=== PATIENT | female | born 1990 | race Caucasian/White ===

== ENCOUNTER 2023-11-04 10:10 | Outpatient (CLI) | payer OTHER, MEDICAID, SELFPAY | END 2023-11-04 10:11 | disposition home or self-care (01) | LOC: NFLDREF 10:11 | PROVIDERS: Visit Provider Physician Assistant | DX: Z34.82 Encounter for supervision of other normal pregnancy, second trimester (principal) | CPT/HCPCS: 86762 ==

== ENCOUNTER 2023-11-20 15:10 | Outpatient (CLI) | payer OTHER, MEDICAID, SELFPAY | END 2023-11-20 15:11 | disposition home or self-care (01) | LOC: NFLDREF 11-21 07:00 | PROVIDERS: Visit Provider Obstetrics & Gynecology | DX: Z34.92 Encounter for supervision of normal pregnancy, unspecified, second trimester (principal) | CPT/HCPCS: 82728 ==

== ENCOUNTER 2023-12-08 15:40 | Outpatient (CLI) | payer OTHER, MEDICAID, SELFPAY ==
[2023-12-09 15:11] LABS: Strep B DNA Probe Negative (Negative)
[2023-12-10 03:40] LABS: Strep B Susceptibility Needed? No
== END 2023-12-08 15:41 | disposition home or self-care (01) ==
LOC: NFLDREF 15:41
PROVIDERS: PCP Obstetrics & Gynecology; Visit Provider Obstetrics & Gynecology
DX: Z34.83 Encounter for supervision of other normal pregnancy, third trimester (principal)
CPT/HCPCS: 87081; 87653

== ENCOUNTER 2023-12-24 14:55 | Outpatient (CLI) | payer OTHER, MEDICAID, SELFPAY ==
--- NOTE | 2023-12-24 15:00 | CRLHL7_ITS ---
For Patients: As a result of the Century Cures Act, medical imaging exams and procedure reports are released immediately into your electronic medical record. You may view this report before your referring provider. If you have questions, please contact your health care provider. INDICATION: History of macrosomia TECHNIQUE: Real time ornelas scale imaging of the fetus was performed. COMPARISON: None FINDINGS: Sonographic imaging demonstrates a single living intrauterine gestation. Fetus demonstrates a regular cardiac rate of 139 beats per minute. Fetus has a vertex position. The placenta lies right anterior. Amniotic fluid volume single deepest pocket of 8.3 cm. RITO 25.0 cm. The estimated weight is 4428gm which lies at the greater than 97th %. BPD, HC, AC greater than 97th percentile. FL 45th percentile. The fetus was active. Absent breathing movements. There was normal flexion and extension of the trunk and extremities. IMPRESSION: Biophysical profile 01/09. SDP 8.3 cm. RITO 25.0 cm. Sonographic gestational age 39 weeks 1 day and sonographic due date of 12/30/2023. Sonographic age 1 week ahead of the clinical age. Estimated weight greater than 97th percentile. Abdominal circumference, BPD and HC greater than 97th percentile. Dictated by Matthias Marinelli MD @ 12/25/2023 10:28:17 AM (Electronically Signed)
== END 2023-12-24 14:56 | disposition home or self-care (01) ==
LOC: US 14:55
PROVIDERS: Visit Provider Obstetrics & Gynecology
DX: Z34.93 Encounter for supervision of normal pregnancy, unspecified, third trimester (principal); Z3A.39 39 weeks gestation of pregnancy
CPT/HCPCS: 76816; 76819; 82728

== ENCOUNTER 2023-12-25 09:41 | Outpatient (CLI) | payer OTHER, MEDICAID, SELFPAY ==
[2023-12-25 09:56] LABS: Clue Cells No Clue Cells Seen (None Seen); Trichomonas No Trichomonas Seen (None Seen); Yeast Yeast Seen (None Seen)
== END 2023-12-25 09:42 | disposition home or self-care (01) ==
LOC: NFLDREF 09:42
PROVIDERS: Visit Provider Obstetrics & Gynecology
DX: N89.8 Other specified noninflammatory disorders of vagina (principal)
CPT/HCPCS: 87210

== ENCOUNTER 2023-12-31 16:28 | Inpatient (IN) | payer OTHER, MEDICAID, SELFPAY ==
--- NOTE | 2023-12-31 16:30 | P.OBHP_ITS ---
OB - H&P: HPI Labor/Induction History of Present Illness Time Seen by Provider: 16:30 Date Seen: 12/31/23 Chief Complaint: Ms. Ortiz is a 33yo admitted for IOL in the setting of suspected macrosomia and mild polyhydramnios. is otherwise complicated by transfer of care at 31 weeks, anemia and asthma. She had an uncomplicated of a 9lb1oz with her first baby. Full H&P was completed by Dr. Greene on 12/15/23. Melinda is feeling well, no acute concerns. She denies any regular/painful uterine contractions, vaginal bleeding or leaking of fluid. Endorses active movement. Review of systems negative. Chief complaint: Maternity Narrative: Melinda Ortiz is a 33 year old female Specific Issues/Plans Partner: Felix Alexander. Son: Marino. Baby: Boy! Rory -Transfer OB at 31 weeks -History of recurrent loss x 4. Did not meet criteria for antiphospholipid syndrome. No etiology determined -Asthma, mild intermittent -Suspected macrosomia with borderline polyhydramnios * US 12/25/23: cephalic, RITO 25, SDP 8.3, EFW 4428 g, greater than 97%. BPD, HC and AC >97%< FL 45%. * history of macrosomia, 9 lb 1 oz - Anemia at 33w2d on 11/20/2023: hgb = 10.0. Start Ferrous sulfate 1 tab PO QOD with food. * Hb = 10.1 with low ferritin on 12/24. She is not taking ferrous sulfate; taking a gummy with iron of uncertain dosage. Recommended increase to two gummies QOD. labs 08/05/2022: O positive, negative antibody screen, hemoglobin 12.9, platelets 336, syphilis total antibody nonreactive, hepatitis-B surface antigen nonreactive, HIV negative, gonorrhea and Chlamydia negative, urine culture: No growth, negative hepatitis C, varicella immune, hemoglobin A1c 5.6% TSH 05/29/2023: 1.0 Genetic screening: Maternity T21, negative 10/07/2019 for 1 hour GTT: 110 CBC: Hgb 11.0, platelets 282 Syphilis total antibody: Nonreactive GBS: negative Carrier screening: Negative CF and SMA Imagin. 05/09/2023: [place]-rump length 1.79 cm, 8 weeks 2 days. heart rate 175. CASS 01/06/24 2. 08/13/2023 anatomy ultrasound: Anterior placenta, no previa. EFW 98.2%. Normal anatomy, however suboptimal views due to position. Amniotic fluid was normal 3. 09/16/2023: anatomy survey is completed. Normal. EFW 89.6% Depression screening 10/07/2023: PHQ-9: 0 Immunizations: Tdap: 10/07/2023 H&P: Dr. Greene on 12/15/23 Meds Home Medications and Allergies Home Medications ?Medication ?Instructions ?Recorded ?Confirmed ?Type lactobacillus combination no.9 4 PO QDAY 11/04/23 12/25/23 History billion cell capsule (Adult 50 Plus Probiotic) vit 112-iron 3.33 3 tab PO QDAY 11/04/23 12/25/23 History mg-folate 0.33 [id number] chew tablet (Vitafol Gummies) albuterol sulfate 90 mcg/actuation inhalation 12/08/23 12/25/23 History aerosol inhaler (Ventolin HFA) ferrous sulfate 325 mg (65 mg 325 mg PO QDAY 12/08/23 12/25/23 History iron) tablet (Feosol) Allergies Allergy/AdvReac Type Severity Reaction Status Date / Time acetaminophen [From [place]] AdvReac Intermediate Gastrointestinal Verified 12/25/23 09:24 Upset hydrocodone [From [place]] AdvReac Intermediate Gastrointestinal Verified 12/25/23 09:24 Upset Penicillins AdvReac Intermediate Gastrointestinal Verified 12/25/23 09:24 Upset OB - H&P: Exam Physical Exam: Vital signs: Physical exam: General: No acute distress Psych: Alert and oriented x3, full affect Abdomen: Gravid. Otherwise soft and nontender. EFW 4428g at >97%ile by US on 12/23, AC >97%ile. My Jose's EFW would be 4200g. heart rate: Reactive NST. Baseline of 130 beats per minute, moderate variability, accelerations present, decelerations absent. Cervix: 1/50/-2 Presentation: Cephalic by jose'sanjiv and SVE OB - Problem Based A/P Additional Plan (1) Hx of macrosomia in in prior , currently : Status: Acute (2) Recurrent loss: Problem details: x4. Antiphospholipid antibody screening did not meet criteria for diagnosis. Status: Acute (3) Macrosomia: Status: Acute (4) Polyhydramnios affecting : Status: Acute (5) Iron deficiency anemia: Status: Acute Plan Ms. Ortiz is a 33yo admitted for IOL in the setting of suspected macrosomia and mild polyhydramnios. is otherwise complicated by trans carlene of care at 31 weeks, anemia and asthma. - Cervix is 1/50/-2, medium and posterior on admission, plan to proceed with IOL via cytotec 25mcg PV per protocol. Discussed option of therapeutic rest with morphine/vistaril overnight. - Discussed likely next step of pitocin and AROM tomorrow morning - Reviewed risks associated with suspected macrosomia including labor dystocia, delivery, shoulder dystocia and PPH. If shoulder dystocia were to occur, discussed potential interventions that may be required to alleviate dystocia. Reviewed risks of higher order laceration/episiotomy, nerve palsy, bruising and hypoxia/neurologic impairment if severe. Discussed risk of cord prolapse and PPH with polyhydramnios. All questions answered. - BT O+. Obtain updated CBC and T/S on admission given anemia on oral iron - GBS negative
[2023-12-31 16:45] VITALS: PULSE 109; O2SAT 97
[2023-12-31 16:55] VITALS: BP 127/80; PULSE 100
[2023-12-31 17:00] VITALS: RESP 15; TEMP 36.9
[2023-12-31] MEDS: miSOPROStoL 25 MCG/0.25 TABLET VAGINAL (17:27)
[2023-12-31 17:47] VITALS: BMI 34.4
[2023-12-31 18:46] LABS: Basophils Percent Auto 0.1 % (0.0-3.0); Eosinophils Percent Auto 0.1 % (0.0-7.0); Hematocrit 33.8 % (33.0-51.0); Hemoglobin* 10.8 gm/dL (12.0-16.0); Immature Granulocytes Pct Auto 1.1 %; Lymphocytes Percent Auto 19.1 % (20-44); Mean Corpuscular HGB Conc 32 gm/dL (32-36); Mean Corpuscular Hemoglobin 28 pg (26-34); Mean Corpuscular Volume 88 fL (80-100); Monocytes Percent Auto 6.1 % (0.0-11.0); Neutrophils Percent Auto 73.5 % (42.0-72.0); Platelet Count* 305 K/uL (140-440); RDW Coefficient of Variation % 13.7 % (11.5-15.5); Red Blood Count 3.83 m/uL (4.00-5.20); White Blood Count* 13.82 K/uL (4.50-11.00)
[2023-12-31 18:50] LABS: Slide Review Reflex No
[2023-12-31] MEDS: LACTATED RINGERS 1000 ML 1,000 ML IV ×2 (19:36→21:46)
[2023-12-31 20:27] VITALS: TEMP 37
[2023-12-31] MEDS: MORPHINE 10 MG/ML inj IM (21:13)
[2023-12-31] MEDS: ONDANSETRON 2 MG/ML inj 4 MG IV (22:29)
--- NOTE | 2023-12-31 22:47 | P.OBPN_ITS ---
Subjective Time Seen by Provider: 22:47 Date Seen: 12/31/23 Narrative: Patient seen on PM rounds. She has had intermittent category 2 FHR tracing for intermittent late or variable decelerations that improve with maternal repositioning or IVF bolus. She has always maintained normal baseline with moderate variability, accelerations present intermittently. In to discuss next step in IOL. We discussed she is david regularly/painfully q2-4 minutes with one dose of PV cytotec. Cervix is 1.5/70/- 2. Discussed that I would recommend we proceed with cook catheter placement for further cervical ripening due to risk of tachysystole or worsening heart rate changes with more cytotec. Patient expressed understanding and is agreeable. Reviewed increased risk of malpresentation or cord prolapse with cook and polyhydramnios, however her poly is very mild. Cook placed without difficulty, 60/60mL. Plan expectant management for the next several hours. Tentatively plan to augment with pitocin at 0300, will revise as clinically indicated. Patient is s/p morphine and planning to receive vistaril for therapeutic rest. Category 1 FHR tracing at this time. All questions answered. Anticipate next exam following tidwell expulsion, sooner as clinically indicated. Objective Vital Signs: Last Vital Signs Temp 98.6 F 12/31/23 20:27 Pulse 100 12/31/23 16:55 Resp 15 12/31/23 17:00 BP 127/80 12/31/23 16:55 Pulse Ox 97 12/31/23 16:45
[2023-12-31] MEDS: hydrOXYzine pamoate 25 MG CAPSULE 100 MG PO (22:53)
[2024-01-01] VITALS (80 sets, daily range): BP systolic 97–139; BP diastolic 49–74; PULSE 71–125; RESP 16; TEMP 36.5–37.2; O2SAT 91–100
[2024-01-01] MEDS: fentaNYL 100 MCG/2 ML inj IVP ×2 (02:50→02:58)
[2024-01-01] MEDS: LACTATED RINGERS 1000 ML 1,000 ML IV (03:31)
[2024-01-01] MEDS: LIDOCAINE 2% (PF) 5 ML VIAL EPIDURAL (03:43)
[2024-01-01] MEDS: ROPIVACAINE 0.2% 100 ml 100 ML 12 MG EPIDURAL (04:00)
--- NOTE | 2024-01-01 04:03 | P.ANBPRC_ITS ---
[facility] Medical History History of vaginal delivery Depression ?F32.A - Depression, unspecified (ICD-10) Anxiety disorder ?F41.9 - Anxiety disorder, unspecified (ICD-10) Surgical History History of D&C ?Z98.890 - Other specified postprocedural states (ICD-10) History of bunionectomy ?Z98.890 - Other specified postprocedural states (ICD-10) History of appendectomy ?Z90.49 - Acquired absence of other specified parts of digestive tract (ICD- 10) Family History Mother Breast cancer Ovarian cancer Cervical cancer Depression Maternal Grandmother Coronary artery disease Aunt Lung cancer Sister Asthma Anxiety Social History Narrative: SOCIAL HISTORY: 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 Marital status: Significant other. Episcopalian/cultural needs: no. Chemical or radiation exposure: no. Pre- tobacco use: no. Pre- alcohol use: 5/week. Current tobacco use: no. Current alcohol use: no. Recreational drug use: no. Dietary restrictions: no. Blood transfusion acceptable in an emergency: yes. History of depression or currently depressed: Remote history. Current or past physical, emotional, or sexual mistreatment: Denies. Problems that will make it hard to make it to appointments: Denies. What is your current living situation?: I presently have a place to live Problems where you live: no known problems In the past 12 months, utilities in danger of being shut off: no In past 12 months, lack of transportation kept you from medical appts, meetings, work, or getting things needed for daily living: no In the past 12 mos, have been you worried that your food would run out before you had money to buy more?: never true In the past 12 mos, the food you bought just didn't last and you didn't have money to buy more?: never true Smoking Status: Never smoker How often does anyone, including family, friends and others, physically hurt you : never How often does anyone, including family, friends and others, insult or talk down to you: never How often does anyone, including family, friends and others, threaten you with harm: never How often does anyone, including family, friends and others, scream or curse at you: never Little interest or pleasure in doing things: not at all Feeling down, depressed, or hopeless: not at all Meds Home Medications and Allergies Home Medications ?Medication ?Instructions ?Recorded ?Confirmed ?Type lactobacillus combination no.9 4 4,000 mmu cells PO QDAY 11/04/23 12/31/23 History billion cell capsule (Adult 50 Plus Probiotic) vit 112-iron 3.33 3 tab PO QDAY 11/04/23 12/31/23 History mg-folate 0.33 [id number] chew tablet (Vitafol Gummies) albuterol sulfate 90 mcg/actuation 2 inh inhalation .PRN 12/08/23 12/31/23 History aerosol inhaler (Ventolin HFA) ferrous sulfate 325 mg (65 mg 325 mg PO .QOD 12/08/23 12/31/23 History iron) tablet (Feosol) Allergies Allergy/AdvReac Type Severity Reaction Status Date / Time hydrocodone [From [place]] AdvReac Intermediate Gastrointestinal Verified 12/31/23 17:49 Upset Penicillins AdvReac Intermediate Gastrointestinal Verified 12/31/23 17:49 Upset Results Labs Labs: Laboratory Results - last 24 hr 12/31/23 18:13 WBC 13.82 H RBC 3.83 L Hgb 10.8 L Hct 33.8 MCV 88 MCH 28 MCHC 32 RDW Coeff of [place] 13.7 Plt Count 305 Neut % (Auto) 73.5 H Lymph % (Auto) 19.1 L Lamar % (Auto) 6.1 Eos % (Auto) 0.1 Baso % (Auto) 0.1 Neut # (Auto) 10.20 H Lymph # (Auto) 2.60 Lamar # (Auto) 0.80 Eos # (Auto) 0.00 Baso # (Auto) 0.00 Abs Immat Gran (auto) 0.20 Imm/Tot Granulo (auto) 1.1 Blood Type O Positive Antibody Screen NEGATIVE Vital Signs Vital Signs: Last Vital Signs Temp 97.8 F 01/01/24 00:10 Pulse 96 01/01/24 04:01 Resp 15 12/31/23 17:00 BP 114/62 01/01/24 04:03 Pulse Ox 97 01/01/24 04:02 Weight: 102.875 kg Height: 172.72 cm Anesthesia Procedures Epidural Insertion Patient Location: OB Start Time: 03:15 Stop Time: 04:15 Start Date: 01/01/24 Stop Date: 01/01/24 Reason for Block: procedure for pain Patient Position: sitting Performed By: Osiel Schmitt Preanesthetic Checklist: IV checked, risks and benefits discussed, monitors and equipment checked, pre-op evaluation, timeout performed and anesthesia consent Prep: chlorhexidine gluconate Monitoring: blood pressure monitoring, continuous pulse oximetry and heart rate Approach: midline Vertebral Space: lumbar (1-5) Epidural Technique: ZAIRA saline Needle Type: Tuohy needle Injection Technique: continuous catheter Needle gauge: 17 Needle Length (cm): 10 cm Needle Insertion Depth (cm): 7 Catheter Gauge: 19 Catheter Type: multi-orifice Catheter at skin depth (cm): 14 Test Dose Result: negative and lidocaine 1.5% with epinephrine 1 to 200,000
[2024-01-01] MEDS: OXYTOCIN 30 unit/500 ML in NS 30 UNIT/500 ML BAG IVPB (05:48)
[2024-01-01] MEDS: ONDANSETRON 2 MG/ML inj 4 MG IV (06:36)
--- NOTE | 2024-01-01 07:09 | W.PM.VAGDEL1 ---
Procedure Delivery date: 01/01/24 Procedure Done: Global Events: Labor Induction, Polyhydramnios and Other (Macrosomia) Delivery augmentation: pitocin Delivery monitor: external FHT Route of delivery: Laceration description: Vaginal - 1st Degree Estimated blood loss (mL): 100 Anesthesia type: Epidural Disposition: floor Complications: None Narrative: Melinda Ortiz is a 33yo at 39w2d GA. She was admitted to the hospital for induction of labor in the setting of suspected macrosomia, polyhydramnios. heart tones on admission were category 1. Her was otherwise complicated by asthma. Her labor was induced with cytotec x1 then cook catheter and epidural was utilized for pain management. Status of bag of joseph: SROM of clear fluids. heart tones during active labor were category 1 and 2. She was complete at 0610 and had a normal vaginal delivery at 0650. heart tones during second stage of labor were category 1 and 2. Baby delivered OA, restituted SHARYN and the anterior and posterior shoulders delivered without difficulty. Nuchal cord:present but loose, delivered through and reduced at perineum. The cord was clamped and cut after delayed cord clamping. Active management of the third stage was started and the placenta delivered spontaneous and intact at 0655. Cord gases sent: no Cord blood sent for ABO: no Perineum and vagina were inspected, and the following lacerations were noted: tiny vaginal laceration, hemostatic. Repair was not required. Excellent hemostasis was noted. The following counts were correct: sponges. Mother and in stable condition following the . Infant Infant Gender: Male presentation: vertex Placental Delivery Description: Spontaneous Cord Description: 3 Vessels, Nuchal Cord and Loose
[2024-01-01] MEDS: IBUPROFEN 600 MG TABLET PO ×3 (09:26→21:51)
[2024-01-01] MEDS: DOCUSATE SODIUM 100 MG CAPSULE PO (09:27)
[2024-01-01] MEDS: ACETAMINOPHEN 500 MG TABLET 1000 MG PO ×2 (12:12→18:43)
--- NOTE | 2024-01-01 12:26 | PM.ANPOST ---
Post Anesthesia Note Post Anesthesia Note Patient seen: Inpatient Respiratory Status: adequate Cardiovascular Status: adequate Mental Status: baseline Pain: adequate Temp: baseline Anesthetic awareness: N/A Complications: none Follow care: none
[2024-01-02 00:30] VITALS: BP 111/66; PULSE 78; RESP 16; TEMP 36.6; O2SAT 97
[2024-01-02] MEDS: IBUPROFEN 600 MG TABLET PO ×2 (03:52→10:19)
[2024-01-02 04:25] VITALS: BP 102/66; PULSE 72; RESP 16; TEMP 36.6; O2SAT 96
--- NOTE | 2024-01-02 07:47 | P.DS_ITS ---
DS: Providers Provider Date Seen: 01/02/24 Date of admission: 12/31/23 16:28 Primary care physician: Not a Local Provider Admitting Clinician: Natalie Ramirez MD Attending Physician on discharge: Jackie Chatman CNM DS: Diagnosis Discharge Diagnosis (1) care and examination immediately after delivery: Status: Acute (2) Lactating mother: Status: Acute Exam Narrative: Exam Narrative: GENERAL APPEARANCE:? normal affect, alert, no distress MOOD:? appropriate CHEST:? clear to auscultation HEART:? regular rate and rhythm ABDOMEN:? soft, non-tender the uterine fundus is At Umbilicus, Midline and is appropriate for the stage of recovery. PERINEUM:? mild edema of the perineum, there is a Vaginal Laceration,?1st degree that is healing well. EXTREMITIES:? normal and trace edema Const: Vital Signs, click to edit/add: Vital Signs - 24 hr 01/01/24 07:59 01/01/24 08:14 01/01/24 08:29 Temperature Pulse Rate 91 93 86 Pulse Rate [Pulse Oximeter] Respiratory Rate Blood Pressure 116/63 121/62 111/57 L Blood Pressure [Ri ght Arm] Pulse Oximetry Oxygen Delivery Me thod 01/01/24 08:44 01/01/24 11:49 01/01/24 21:53 Temperature 98.3 F 97.9 F Pulse Rate 85 Pulse Rate [Pulse Oximeter] 79 76 Respiratory Rate 16 16 Blood Pressure 116/58 L Blood Pressure [Ri ght Arm] 114/74 117/73 Pulse Oximetry 96 95 Oxygen Delivery Me thod Room Air Room Air 01/02/24 00:30 01/02/24 04:25 Temperature 97.9 F 97.8 F Pulse Rate Pulse Rate [Pulse Oximeter] 78 72 Respiratory Rate 16 16 Blood Pressure Blood Pressure [Ri ght Arm] 111/66 102/66 Pulse Oximetry 97 96 Oxygen Delivery Me thod Room Air Room Air OB - DS: Summary Hospital Course Hospital Course: Melinda is a 33 y.o. G 6 P 2 who was admitted to [facility] for induction of labor for polyhydramnios and suspected macrosomia. ?She had a NVD that was uncomplicated. The patient feels well. ?The pain is well controlled with current medications. ?She has no new complaints. ?She is breast feeding and reports things are going well. the patient has done well.? Vitals have been stable.? She has remained afebrile.? Has a good appetite, is tolerating a general diet. ?She is voiding without difficulty.? She is passing gas and has not had a bowel movement.? She is ambulating and denies any dizziness.? Has small amount of rubra lochia. She is planning condoms for prevention. Problems: Anemia plan: Discharge home with baby. Follow up in 2 weeks and 6 weeks. , may see if needed Anemia. Hgb 9.8. Iron supplement ordered orally every other day Peripartum Data Infant delivery method: Vaginal Laceration description: Vaginal - 1st Degree complications: none [place] Gender: Male Discharge Plan: Home Status at Discharge Functional status at discharge: independent ambulation Overall status at discharge: patient is progressing back to baseline Time Spent with Patient Time attestation: Total time spent providing and/or coordinating discharge services: Discharge Plan Discharge Disposition: Home, Self-Care Date of Admission: 12/31/23 16:28 Attending Provider on Discharge: Jackie Chatman Primary Care Provider: Provider,Not a Local Condition: Stable Anticipated Discharge Date/Time: 01/02/24 12:00 Discharge Medications: New docusate sodium 100 mg Capsule 100 mg PO DAILY Qty: 90 0RF ibuprofen 600 mg Tablet 600 mg PO Q6H PRNQty: 60 0RF acetaminophen 500 mg Tablet 1,000 mg PO Q6H PRNQty: 0 0RF Continued Adult 50 Plus Probiotic 4 billion cell capsule 4,000 mmu cells PO QDAY Vitafol Gummies 3.33 mg iron- 0.33 mg tablet,chewable 3 tab PO QDAY albuterol sulfate [Ventolin HFA] 90 mcg/actuation HFA aerosol inhaler 2 inh inhalation .PRN ferrous sulfate [Feosol] 325 mg (65 mg iron) tablet 325 mg PO .QOD Discharge Orders: Discharge Order (Routine); Ordered 01/02/24 Ordered By: Jackie Chatman Patient Education: OB Over the Counter Medication Information, OB Vaginal/Breast Feeding Additional Instructions: Discharge instructions were reviewed with the patient including signs and symptoms of infection and home going medications Nothing vaginally for 6 weeks: no tampons or intercourse Do not drive while taking narcotic pain medication(s) Off Work or School for 6 weeks 2-week visit: discuss infant feeding concerns, review control options and screen for anxiety/depression. 6-week visit for an annual exam. consultation services are available to all mothers and babies for the first year after delivery.? To make an appointment, please call [phone]. Activity Level: Activity as Tolerated Discharge Diet: Regular Follow Up Appointments: Provider,Not a Local [Primary Care Provider] - Forms: [employer] Info Instructions
[2024-01-02 07:49] LABS: Hemoglobin* 9.6 gm/dL (12.0-16.0)
[2024-01-02 08:04] VITALS: BP 121/69; PULSE 73; RESP 16; TEMP 36.8; O2SAT 96
[2024-01-02 18:46] LABS: Rapid Plasma Reagin (RPR) Non Reactive (Non Reactive)
== END 2024-01-02 14:24 | disposition home or self-care (01) | DRG 807 ==
PROVIDERS: Admitting Provider Obstetrics & Gynecology; Visit Provider Obstetrics & Gynecology
DX: O40.3XX0 Polyhydramnios, third trimester, not applicable or unspecified (principal); O99.02 Anemia complicating childbirth; D50.9 Iron deficiency anemia, unspecified; O36.63X0 Maternal care for excessive fetal growth, third trimester, not applicable or unspecified; O76 Abnormality in fetal heart rate and rhythm complicating labor and delivery; O70.0 First degree perineal laceration during delivery; Z37.0 Single live birth; Z3A.39 39 weeks gestation of pregnancy
CPT/HCPCS: 01967; 36415; 59200; 82261; 82760; 82776; 83020; 83021; 83498; 83516; 83789; 84443; 85018; 85025; 86592; 86850; 86900; 86901; A9270; C1726; J2270; J2371; J2405; J2795; J3010; J7120

== ENCOUNTER 2024-01-07 11:01 | Outpatient (CLI) | payer OTHER, MEDICAID, SELFPAY | END 2024-01-07 11:02 | disposition home or self-care (01) | PROVIDERS: PCP Obstetrics & Gynecology; Visit Provider Obstetrics & Gynecology | DX: R03.0 Elevated blood-pressure reading, without diagnosis of hypertension (principal); R60.0 Localized edema | CPT/HCPCS: 82565; 84450; 84460 ==

== ENCOUNTER 2024-01-09 10:19 | Outpatient (CLI) | payer OTHER, MEDICAID, SELFPAY | END 2024-01-09 10:20 | disposition home or self-care (01) | PROVIDERS: Visit Provider Obstetrics & Gynecology | DX: R03.0 Elevated blood-pressure reading, without diagnosis of hypertension (principal); R60.9 Edema, unspecified | CPT/HCPCS: 82565; 84450; 84460 ==

== ENCOUNTER 2024-04-20 09:00 | Outpatient (RCR) | payer OTHER, MEDICAID, SELFPAY ==
--- NOTE | 2024-03-09 16:04 | PT.OPEX ---
PT [place] Outpatient Eval PT [facility] Outpatient Eval Start: 03/09/24 08:07 Freq: Status: Active Protocol: Document 03/09/24 08:08 SCOTT (Rec: 03/09/24 13:01 SCOTT [id number]) E-signed By Lashonda Briones, PT Physical Therapy Outpatient Evaluation Insurance Information Recert Due Date 06/07/24 Insurance Name Medicaid,[facility], [facility] Medical Diagnosis LBP, POOJA Treating Diagnosis pelvic floor coordination impaired, core weakness Referring MD Natalie Ramirez MD Subjective Subjective Pt had induction for on 01/01/24 c tidwell balloon. She also has an 18 month old. She has 16 weeks of maternity leave, back to work Apr 22. She was having a little bit of abdominal pain. Always has had horrible LBP, even before having kids. Does stretching and ibuprofen, has muscle relaxer prescription. Her back pain has been more frequent, but same intensity since having babies. She has some pain during intercourse at vaginal opening. She was having full loss of bladder continence with throwing up. A little leakage with laugh, cough, sneeze. Denies bowel leakage. She is having constipation, BSS 1-2 type. Goes once every 3 days. 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 Precautions Treatment Precautions/Contraindications lactating mother, heart murmur , anxiety, asthma Therapy Limitations/Systems Review Not Limited Objective Range of Motion did PT while for back pain L toe cross over Other/Pertinent Objective L bunion, post- foot fx and bone chip removal surgery Gr III or IV tear with first delivery, small tear with second induced with tidwell balloon and had him 14 hours later, fluid was a bit excessive and he was over 9# Frequent UTI's (multiple per year) Innom rotation R innom ant rotation TA- weak diaphragmatic breath good c cues R hip IR 25 degrees SLS impaired L Assessment Assessment/Impression Pt is a 34 yr old female with pelvic floor dysfunction with dyspareunia, impaired bladder emptying, pelvic floor coordination dysfunction. She has h/o SIJ dysfunction. She has poor core strength and chronic, more frequent LBP. She was late to evaluation, so further assessment of core and hip strength as well as internal pelvic floor mm coordination. Primary Functional Limitations dyspareunia, frequent UTI's, POOJA, LBP Plan of Care Rehabilitation Potential Good Rehabilitation Potential Comments Chronic LBP Physical Therapy Goals Pt will demonstrate indep c HEP to maintain and progress gains made in therapy in 10 weeks. Pt will demonstrate pressure management techniques for lifting 30# to carry and car seat s leakage or back pain in 8 weeks. Pt will report 75% improvement in POOJA in 6 weeks to demonstrate improved pelvic floor mm coordination. Pt will report Marinoff of 1 or less in 8 weeks to improve quality of life. Treatment Plan/Direct Interventions Electrical Stimulation,Gait Training,Joint Mobilization, Manual Therapy,Neuromuscular Re-ed,Self-Care/Home Management,Therapeutic Activities,Therapeutic Exercises,Ultrasound Frequency/Duration 1x/week for 12 weeks Patient Will Be Discharged From Therapy Completion of LTG(s),Skills Plateau,Independent w/HEP, Independently Progressing Evaluation Billing Untimed Code Treatment Minutes 30 PT Eval No Charge No Complexity Moderate Certification Information Initial Certification Date 03/09/24 Ending Certification Date 06/07/24 Provider Signature Required Yes Provider Signature Shows Agreement With POC & Medical Necessity Physician NPI Number Write NPI# Here Physician Comment/Change : Physician Signature & Date Requested Please Sign/Date Here
== END 2024-08-18 23:59 | disposition home or self-care (01) ==
PROVIDERS: Visit Provider Obstetrics & Gynecology
DX: N39.3 Stress incontinence (female) (male) (principal); M54.50 Low back pain, unspecified; R27.8 Other lack of coordination; M62.81 Muscle weakness (generalized); Z51.89 Encounter for other specified aftercare
CPT/HCPCS: 97110; 97140; 97162